=== PATIENT | female | born 1995 | race Caucasian/White ===

== ENCOUNTER 2024-02-29 11:45 | Observation (INO) | payer MEDICAID, SELFPAY ==
[2024-02-29] VITALS (8 sets, daily range): BP systolic 115–133; BP diastolic 66–89; PULSE 74–100; BMI 31.8
[2024-02-29] MEDS: ACETAMINOPHEN 325 MG TABLET 650 MG PO (12:17)
[2024-02-29 12:53] LABS: Collection Type, Urine Clean Catch
[2024-02-29 13:07] LABS: Basophils # (Auto) 0.1 Thou/mm3 (0.0-0.2); Basophils % (Auto) 1 % (0-2.5); Eosinophils % (Auto) 1 % (0-10); Hematocrit 25.7 % (36.0-46.0); Immature Granulocytes % (Auto) 2 % (0-0); Immature Granulocytes Auto 0.13 Thou/mm3 (0.00-0.00); Lymphocytes # (Auto) 1.2 Thou/mm3 (1.0-4.8); Lymphocytes % (Auto) 14 % (10-50); Mean Corpuscular HGB Conc 31.5 g/dl (31.0-37.0); Mean Corpuscular Hemoglobin 22.1 pg (25.0-35.0); Mean Corpuscular Volume 70 fL (80-100); Monocytes # (Auto) 0.5 Thou/mm3 (0.0-0.8); Monocytes % (Auto) 5 % (0-12); Neutrophils # (Auto) 6.9 Thou/mm3 (1.8-7.7); Neutrophils % (Auto) 78 % (37-80); Nucleated Red Blood Cell % 0 /100 WBC (0); Platelet Count 235 Thou/mm3 (140-440); RDW Standard Deviation 40.2 fL (36.4-46.3); Red Blood Count 3.66 Miln/mm3 (4.00-5.20); White Blood Count 8.7 Thou/mm3 (3.6-11.0)
[2024-02-29 13:16] LABS: Alanine Aminotransferase 11 U/L (10-49); Albumin/Globulin Ratio 1.7 (1.2-2.2); Alkaline Phosphatase 239 U/L (46-116); Anion Gap 8 (7-16); Aspartate Amino Transferase 17 U/L (0-34); BUN/Creatinine Ratio 12 Ratio (12-20); Bilirubin,Total 0.3 mg/dL (0.3-1.2); Blood Urea Nitrogen 6 mg/dL (9-23); Calcium 8.7 mg/dL (8.3-10.6); Calcium (Corrected) 8.7 mg/dL (8.5-10.1); Carbon Dioxide 21.7 mMol/L (20.0-31.0); Chloride 105 mMol/L (98-107); Creatinine (Component) 0.5 mg/dL (0.6-1.3); Estimated Creatinine Clearance 191.7 mL/min (>60); Globulin 2.4 gm/dL (2.3-3.5); Glucose 78 mg/dL (74-106); LDH (Lactate Dehydrogenase) 185 U/L (120-246); Osmolality,Calculated 266 (275-295); Potassium 3.7 mMol/L (3.4-5.1); Sodium 135 mMol/L (136-145); Total Protein 6.4 gm/dL (5.7-8.2); Uric Acid 4.2 mg/dL (3.1-7.8); eGFR > 60 See Note
[2024-02-29 13:17] LABS: Bilirubin,Urine Negative (Negative); Blood,Urine Negative (Negative); Clarity,Urine Turbid (Clear/Hazy); Color,Urine Yellow (Lt Yel-Yel); Glucose, Urine Negative (Negative); Ketones,Urine Negative (Negative); Leukocyte Esterase,Urine Positive (Negative); Nitrite,Urine Negative (Negative); PH,Urine 6.5 (5.0-7.0); Protein,Urine Trace (Neg - Trace); RBC,Urine 1 /hpf (0-3); Specific Gravity,Urine 1.022 (1.001-1.035); Squamous Epithelial Cell,Urine 15 /hpf (0-5); Urobilinogen,Urine Negative mg/dL (0.0-1.0); WBC,Urine 4 /hpf (0-5)
[2024-02-29 13:18] LABS: Hemoglobin 8.1 g/dL (12.0-16.0)
[2024-02-29 13:21] LABS: Fibrinogen 585 mg/dL (175-375); INR 0.9 (0.9-1.3); Partial Thromboplastin Time 25.4 Seconds (22.0-36.0); Prothrombin Time 10.1 Seconds (9.0-12.2)
== END 2024-02-29 13:55 | disposition home or self-care (01) ==
PROVIDERS: Admitting Provider Obstetrics & Gynecology; Visit Provider Obstetrics & Gynecology
DX: O26.893 Other specified pregnancy related conditions, third trimester (principal); H53.8 Other visual disturbances; R51.9 Headache, unspecified; Z3A.36 36 weeks gestation of pregnancy
CPT/HCPCS: 36415; 59025; 59899; 80053; 81001; 83615; 84550; 85025; 85384; 85610; 85730; A9270

== ENCOUNTER 2024-03-08 10:01 | Outpatient (CLI) | payer MEDICAID, SELFPAY ==
[2024-03-08] VITALS (17 sets, daily range): BP systolic 112–132; BP diastolic 70–73; PULSE 84–116; O2SAT 98–99; BMI 32.0
[2024-03-08 10:39] LABS: Collection Type, Urine Clean Catch
[2024-03-08 10:42] LABS: Basophils % (Auto) 0 % (0-2.5); Eosinophils % (Auto) 0 % (0-10); Hematocrit 27.3 % (36.0-46.0); Immature Granulocytes % (Auto) 1 % (0-0); Immature Granulocytes Auto 0.11 Thou/mm3 (0.00-0.00); Lymphocytes # (Auto) 1.3 Thou/mm3 (1.0-4.8); Lymphocytes % (Auto) 14 % (10-50); Mean Corpuscular HGB Conc 31.1 g/dl (31.0-37.0); Mean Corpuscular Hemoglobin 21.7 pg (25.0-35.0); Mean Corpuscular Volume 70 fL (80-100); Monocytes # (Auto) 0.3 Thou/mm3 (0.0-0.8); Monocytes % (Auto) 3 % (0-12); Neutrophils # (Auto) 7.4 Thou/mm3 (1.8-7.7); Neutrophils % (Auto) 81 % (37-80); Nucleated Red Blood Cell % 0 /100 WBC (0); Platelet Count 210 Thou/mm3 (140-440); RDW Standard Deviation 40.9 fL (36.4-46.3); Red Blood Count 3.92 Miln/mm3 (4.00-5.20); White Blood Count 9.1 Thou/mm3 (3.6-11.0)
[2024-03-08 10:57] LABS: Bacteria,Urine Rare; Bilirubin,Urine Negative (Negative); Blood,Urine Negative (Negative); Color,Urine Lt-Yellow (Lt Yel-Yel); Glucose, Urine Negative (Negative); Ketones,Urine Negative (Negative); Leukocyte Esterase,Urine Positive (Negative); Nitrite,Urine Negative (Negative); Protein,Urine Negative (Neg - Trace); RBC,Urine 2 /hpf (0-3); Specific Gravity,Urine 1.022 (1.001-1.035); Squamous Epithelial Cell,Urine 12 /hpf (0-5); Urobilinogen,Urine Negative mg/dL (0.0-1.0); WBC,Urine 3 /hpf (0-5)
[2024-03-08 11:03] LABS: Fibrinogen 585 mg/dL (175-375); INR 0.9 (0.9-1.3); Partial Thromboplastin Time 25.1 Seconds (22.0-36.0); Prothrombin Time 10.3 Seconds (9.0-12.2)
[2024-03-08 11:05] LABS: Clarity,Urine Hazy (Clear/Hazy); Sperm,Urine Present
[2024-03-08 11:06] LABS: Hemoglobin 8.5 g/dL (12.0-16.0)
[2024-03-08 11:10] LABS: Alanine Aminotransferase 10 U/L (10-49); Albumin, Serum 4.1 gm/dL (3.5-5.0); Albumin/Globulin Ratio 1.5 (1.2-2.2); Alkaline Phosphatase 253 U/L (46-116); Anion Gap 11 (7-16); Aspartate Amino Transferase 13 U/L (0-34); BUN/Creatinine Ratio 17 Ratio (12-20); Bilirubin,Total 0.4 mg/dL (0.3-1.2); Blood Urea Nitrogen 10 mg/dL (9-23); Calcium 8.8 mg/dL (8.3-10.6); Calcium (Corrected) 8.8 mg/dL (8.5-10.1); Carbon Dioxide 20.1 mMol/L (20.0-31.0); Chloride 105 mMol/L (98-107); Creatinine (Component) 0.6 mg/dL (0.6-1.3); Estimated Creatinine Clearance 160.3 mL/min (>60); Globulin 2.7 gm/dL (2.3-3.5); Glucose 111 mg/dL (74-106); LDH (Lactate Dehydrogenase) 196 U/L (120-246); Osmolality,Calculated 271 (275-295); Potassium 3.4 mMol/L (3.4-5.1); Sodium 136 mMol/L (136-145); Total Protein 6.8 gm/dL (5.7-8.2); Uric Acid 4.1 mg/dL (3.1-7.8); eGFR > 60 See Note
== END 2024-03-08 11:23 | disposition home or self-care (01) ==
LOC: S4S1 10:07 → S4SX 10:09
PROVIDERS: PCP Advanced Practice Midwife; Referring Provider Advanced Practice Midwife; Visit Provider Advanced Practice Midwife
DX: Z34.83 Encounter for supervision of other normal pregnancy, third trimester (principal); Z36.89 Encounter for other specified antenatal screening; Z3A.37 37 weeks gestation of pregnancy
CPT/HCPCS: 36415; 59025; 80053; 81001; 83615; 84550; 85025; 85384; 85610; 85730

== ENCOUNTER 2024-03-26 10:10 | Inpatient (IN) | payer MEDICAID, SELFPAY ==
[2024-03-26] VITALS (54 sets, daily range): BP systolic 131–176; BP diastolic 80–101; PULSE 75–125; RESP 16–100; TEMP 36.5–37.3; O2SAT 91–100; BMI 32.1
[2024-03-26 11:39] LABS: Basophils # (Auto) 0.1 Thou/mm3 (0.0-0.2); Basophils % (Auto) 0 % (0-2.5); Eosinophils # (Auto) 0.1 Thou/mm3 (0.0-0.5); Eosinophils % (Auto) 0 % (0-10); Hematocrit 30.6 % (36.0-46.0); Hemoglobin 9.5 g/dL (12.0-16.0); Immature Granulocytes % (Auto) 1 % (0-0); Immature Granulocytes Auto 0.11 Thou/mm3 (0.00-0.00); Lymphocytes # (Auto) 1.6 Thou/mm3 (1.0-4.8); Lymphocytes % (Auto) 13 % (10-50); Mean Corpuscular Hemoglobin 21.3 pg (25.0-35.0); Mean Corpuscular Volume 69 fL (80-100); Monocytes # (Auto) 0.5 Thou/mm3 (0.0-0.8); Monocytes % (Auto) 4 % (0-12); Neutrophils # (Auto) 9.7 Thou/mm3 (1.8-7.7); Neutrophils % (Auto) 81 % (37-80); Nucleated Red Blood Cell % 0 /100 WBC (0); Platelet Count 303 Thou/mm3 (140-440); RDW Standard Deviation 43.5 fL (36.4-46.3); Red Blood Count 4.47 Miln/mm3 (4.00-5.20)
[2024-03-26] MEDS: MISOPROSTOL 200 mCg TABLET 800 MCG PR ×2 (11:39→14:36)
[2024-03-26] MEDS: OXYTOCIN INJ 10 UNIT/ML VIAL IM (11:41)
[2024-03-26] MEDS: OXYTOCIN in NS 20 units 20 UNIT/1,000 ML BAG 125 UNIT IV ×2 (11:42→17:14)
[2024-03-26] MEDS: BENZO/LANO/ALOE (Dermoplast) 60 GM CAN 1 SPRAY TOP (11:55)
--- NOTE | 2024-03-26 12:04 | ESHP_ITS ---
Documentation for date of: 03/26/24 OB Labor/Induct. HPI History of Present Illness Chief complaint: labor : 6 Para: 3 Term pregnancies: 3 pregnancies: 0 Living children: 3 History of Abortions: Spontaneous and Elective: 0 History of Vaginal deliveries: 3 History of sections: No History of : No Date of last menstrual period: 06/21/23 EVE: 03/26/24 Gestational Age (weeks): 40 Gestational Age (days): 0 Gestational age based on last menstrual period: 39 History of present illness: 28-year-old 6 para 3 admit to labor and delivery complaining of contractions since 613 in the morning. Patient is been followed at [facility] care. First visit 14 weeks. She had a 7-week ultrasound in July they changed her due date to March 26, 2024. Denies social habits. Denies surgery. Denies chronic illness. Last period by ultrasound would be June 21, 2023. Patient is O+, antibody screen negative, RPR nonreactive, rubella nonimmune, hepatitis B negative, HIV negative, hep C negative, GC and Chlamydia were negative. She had a normal 1 hour. Her NIPT and screens were negative. She had normal anatomy scan. And GBS was negative History of Present Dating criteria: LMP confirmed by 1st trimester US Adequate Care: Yes Ultrasounds: normal 1st trimester US and normal mid trimester US Obstetrical complications: none Medical complications: none Review of Systems Review of Systems Systems Reviewed: All systems reviewed, normal except as documented Past Medical History Surgical History SURGICAL: Negative Section Meds Home Medications and Allergies Home Medications ?Medication ?Instructions ?Recorded ?Confirmed ?Type ferrous sulfate 325 mg (65 mg 325 mg PO QDAY 04/04/22 03/08/24 History iron) tablet (Iron (ferrous sulfate)) [id number] 1 mg 1 tab PO QDAY 04/04/22 03/08/24 History tablet Allergies Allergy/AdvReac Type Severity Reaction Status Date / Time No Known Allergies Allergy Verified 03/08/24 10:20 OB Exam Physical Exam Vital signs: Temp Pulse Resp BP Pulse Ox 97.7 F 86 16 149/90 H 97 03/26/24 10:23 03/26/24 11:51 03/26/24 10:23 03/26/24 11:51 03/26/24 11:59 Narrative: Vital signs are stable afebrile. Normal heart rate and rhythm. Lungs clear no wheezes. Gravid abdomen. Gynecoid pelvis. Estimated weight 8 pounds. Vaginal exam on admission was 90%, 7 cm and -1 station. Vertex. Bag water intact. heart rate category 1 with accelerations and moderate variability and regular contractions Detailed Labor and Delivery Exam Dilation (cm): 7 Effacement (%): 90 Cervix position: mid station: -1 Consistency: soft Presentation: Vertex Cervical ripeness score: 8 Membranes: intact Baseline heart rate: 145 monitor accelerations: 15x15 monitor decelerations: None correction variability: Moderate (11-25) Contraction frequency (min): 3-4 Contraction duration (sec): 30 Tachysystole: No Contraction intensity: Moderate OB Results Labs 03/26/24 11:28 03/26/24 11:28 Labs: Short CBC 03/26/24 Range/Units 11:28 WBC 12.0 H (3.6-11.0) Thou/mm3 Hgb 9.5 L (12.0-16.0) g/dL Hct 30.6 L (36.0-46.0) % Plt Count 303 D (140-440) Thou/mm3 Impressions Impression: labor OB Assessment & Plan Additional Plan Induction method: none Plan: anticipate NVD and consult MD perez
--- NOTE | 2024-03-26 12:10 | OBDSUM_ITS ---
Data (Dia) Data Hx Section: No : 6 Para: 3 Term: 3 : 0 : 2 Delivery Data (Dia) Labor Data Stimulated/Augmented: No Induction: No ROM Date: 03/26/24 ROM Time: 11:35 Rupture Type: SROM Amniotic Fluid: Thin Meconium Delivery Data EDC: 03/26/24 EDC calculated by:: LMP/early US confirmation Labor Onset Stage 1 Date: 03/26/24 Labor Onset Stage 1 Time: 11:39 Labor Onset Stage 2 Date: 03/26/24 Labor Onset Stage 2 Time: 11:39 Delivery Date: 03/26/24 Delivery Time: 11:39 Gestational age (weeks): 40 Gestational age (days): 0 Placenta Delivery Date: 03/26/24 Placenta Delivery Time: 11:43 Delivered by: Radha Abdullahi Delivery nurse: Erinn Irene Other staff at delivery: Nurse Other staff at delivery: Nursery Nurse Other staff at delivery: Other staff at delivery: Marleni Kilpatrick Other staff at delivery: Mary Wayne Other staff at delivery: GRETCHEN Delivery Method Delivery: Vaginal Delivery Type: Spontaneous Presentation: Vertex Position: OA Anesthesia Type Primary Anesthesia: None Delivery Room Medications Post Delivery Medications: Tocolytics and Cytotec Placenta Placenta Delivery: Spontaneous (placenta inspected, intact, membranes intact) Placenta Cultures Obtained: No Placenta Sent for Examination: Yes Episiotomy Episiotomy: None Lacerations #1: Labial: separation of tissue, not bleeding, no repair per patient request and small EBL Estimated blood loss (ml): 350 Umbilical Cord Umbilical Vessels: 3 Nuchal Cord: x1 Body Cord: None [place] Data (Dia) Data Gender: Female Infant Weight Grams: 3590 1 Minute Total: 9 5 Minute Total: 9
[2024-03-26 12:22] LABS: Syphilis Nonreactive (Nonreactive)
[2024-03-26 12:27] LABS: Alanine Aminotransferase 10 U/L (10-49); Albumin, Serum 4.3 gm/dL (3.5-5.0); Albumin/Globulin Ratio 1.6 (1.2-2.2); Alkaline Phosphatase 300 U/L (46-116); Anion Gap 12 (7-16); Aspartate Amino Transferase 20 U/L (0-34); BUN/Creatinine Ratio 15 Ratio (12-20); Bilirubin,Total 0.3 mg/dL (0.3-1.2); Blood Urea Nitrogen 9 mg/dL (9-23); Calcium 9.2 mg/dL (8.3-10.6); Calcium (Corrected) 9.2 mg/dL (8.5-10.1); Carbon Dioxide 18.6 mMol/L (20.0-31.0); Chloride 105 mMol/L (98-107); Creatinine (Component) 0.6 mg/dL (0.6-1.3); Estimated Creatinine Clearance 201.1 mL/min (>60); Globulin 2.7 gm/dL (2.3-3.5); Glucose 79 mg/dL (74-106); Osmolality,Calculated 269 (275-295); Potassium 3.9 mMol/L (3.4-5.1); Sodium 136 mMol/L (136-145); eGFR > 60 See Note
[2024-03-26] MEDS: TRANEXAMIC ACID 1,000 MG IVPB 1,000 MG/100 ML BAG 200 MG IV ×2 (12:30→14:30)
[2024-03-26 12:41] LABS: LDH (Lactate Dehydrogenase) 242 U/L (120-246); Uric Acid 4.2 mg/dL (3.1-7.8)
--- NOTE | 2024-03-26 12:48 | PC.NURSE ---
03/26/2024 BLOOD PRESSURES REVIEWED WITH SONIA VALENTINO, [facility] SENT. SONIA CONSULTED WITH , PATIENT DENIES SYMPTOMS PER M.D. NOTIFY IF SBP'S >160 AND DBP > 110.
[2024-03-26 13:14] LABS: INR 0.9 (0.9-1.3); Partial Thromboplastin Time 26.9 Seconds (22.0-36.0); Prothrombin Time 9.9 Seconds (9.0-12.2)
[2024-03-26 13:25] LABS: Fibrinogen 633 mg/dL (175-375)
[2024-03-26] MEDS: IBUPROFEN TAB 400 MG TABLET 800 MG PO (13:57)
--- NOTE | 2024-03-26 14:18 | PC.NURSE ---
03/26/2024 @ 1418 UPDATE GIVEN TO SONIA VALENTINO, PATIENT AFTER VAGINAL DELIVERY DONE. PATIENT FUNDUS, FIRM MIDLINE, ON ASSESSMENT PATIENT DID HAVE CLOTS AND TRICKLE WITH FUNDAL MASSAGES. PATIENT VOIDED AT THIS TIME. ORDERS RECEIVED FROM MARY TO GIVE PATIENT CYTOTEC, 2 BAG OF TXA AND TO CONTINUE WITH SECOND BAG OF POST DELIVERY PITOCIN AFTER FIRST BAG IS COMPLETE.
[2024-03-26 14:52] LABS: Collection Type, Urine Clean Catch
[2024-03-26 14:58] LABS: Bilirubin,Urine Negative (Negative); Blood,Urine Negative (Negative); Clarity,Urine Clear (Clear/Hazy); Color,Urine Lt-Yellow (Lt Yel-Yel); Glucose, Urine Negative (Negative); Ketones,Urine Negative (Negative); Leukocyte Esterase,Urine Negative (Negative); Nitrite,Urine Negative (Negative); Protein,Urine Negative (Neg - Trace); RBC,Urine 1 /hpf (0-3); Specific Gravity,Urine 1.022 (1.001-1.035); Squamous Epithelial Cell,Urine 1 /hpf (0-5); Urobilinogen,Urine Negative mg/dL (0.0-1.0); WBC,Urine < 1 /hpf (0-5)
[2024-03-26 15:10] LABS: Amphetamine/Metham Scrn,Ur OB Negative (Negative); Benzoylecgonine Screen, Ur OB Negative (Negative); Opiate Screen,Urine OB Negative (Negative); THC Screen,Urine OB Negative (Negative)
--- NOTE | 2024-03-26 16:09 | PC.NURSE ---
03/26/2024 @ [address] VARGAS NOTIFIED [facility] NEGATIVE, PATIENT DENIES PRE-ECLAMPSIA SYMPTOMS OR PAIN AT THIS TIME. BLOOD PRESSURES READINGS FROM 1600 VITAL SIGNS READ BACK TO PROVIDER. ORDERS RECEIVED FOR PROCARDIA 10 MG PO X1. REASSESS PATIENT'S BLOOD PRESSURE AFTER 30 MINUTES AND NOTIFY M.D. OF VITAL SIGNS.
[2024-03-26] MEDS: NIFEdipine 10 MG CAPSULE PO (16:20)
--- NOTE | 2024-03-26 16:58 | PC.NURSE ---
03/26/24 @ [address] VARGAS NOTIFIED OF PATIENT BLOOD PRESSURE, 30 MINUTES AFTER PROCARDIA 10 MG PO X1, 151/88 [facility]. ORDERS RECEIVED FROM DR. VARGAS TO GIVE PROCARDIA XL 60 MG PO X1. PER M.D. TAKE BLOOD PRESSURE AT NEXT SCHEDULED ROUTINE VS AND NOTIFY M.D. ORDERS RECEIVED ALSO FROM M.D. TO NOTIFY M.D. IF SBP >160 AND DBP > 100.
[2024-03-26] MEDS: NIFEdipine XL 30 MG TABCR 60 MG PO (17:08)
[2024-03-26 18:18] LABS: Basophils % (Auto) 0 % (0-2.5); Eosinophils % (Auto) 0 % (0-10); Hematocrit 26.9 % (36.0-46.0); Immature Granulocytes % (Auto) 1 % (0-0); Immature Granulocytes Auto 0.12 Thou/mm3 (0.00-0.00); Lymphocytes # (Auto) 1.5 Thou/mm3 (1.0-4.8); Lymphocytes % (Auto) 11 % (10-50); Mean Corpuscular Hemoglobin 21.6 pg (25.0-35.0); Mean Corpuscular Volume 68 fL (80-100); Monocytes # (Auto) 0.6 Thou/mm3 (0.0-0.8); Monocytes % (Auto) 4 % (0-12); Neutrophils # (Auto) 11.9 Thou/mm3 (1.8-7.7); Neutrophils % (Auto) 84 % (37-80); Nucleated Red Blood Cell % 0 /100 WBC (0); Platelet Count 249 Thou/mm3 (140-440); RDW Standard Deviation 42.8 fL (36.4-46.3); Red Blood Count 3.98 Miln/mm3 (4.00-5.20); White Blood Count 14.1 Thou/mm3 (3.6-11.0)
[2024-03-26 18:19] LABS: Hemoglobin 8.6 g/dL (12.0-16.0)
--- NOTE | 2024-03-26 19:00 | PC.NURSE ---
03/26/2024 @ 1900 UPDATE GIVEN TO SONIA VALENTINO. VITAL SIGNS, MEDICATIONS GIVEN TO PATIENT AND CBC RESULTS REVIEWED. PER CNM WILL CONSULT DR. VARGAS ON POC AND WILL CALL BACK UNIT. CNM NOTIFIED PATIENT DENIES PAIN AND + VOID AFTER DELIVERY. ORDERS RECEIVED FROM MARY FOR REPEAT CBC AT 0500.
[2024-03-26] MEDS: FERRIC SOD GLUC INJ 125 MG in SODIUM CHLORIDE 0.9% 100 ML 110 MG IV (21:27)
[2024-03-26] MEDS: DOCUSATE SOD 100 MG CAPSULE PO (22:29)
[2024-03-27 01:50] LABS: Path Review Blood Smear Sent to Pathologist
[2024-03-27 04:01] VITALS: BP 111/69; PULSE 85; RESP 16; TEMP 36.9; O2SAT 96
[2024-03-27 06:45] LABS: Basophils # (Auto) 0.1 Thou/mm3 (0.0-0.2); Basophils % (Auto) 1 % (0-2.5); Eosinophils # (Auto) 0.2 Thou/mm3 (0.0-0.5); Eosinophils % (Auto) 2 % (0-10); Hematocrit 27.2 % (36.0-46.0); Hemoglobin 8.3 g/dL (12.0-16.0); Immature Granulocytes % (Auto) 1 % (0-0); Immature Granulocytes Auto 0.13 Thou/mm3 (0.00-0.00); Lymphocytes # (Auto) 2.1 Thou/mm3 (1.0-4.8); Lymphocytes % (Auto) 20 % (10-50); Mean Corpuscular HGB Conc 30.5 g/dl (31.0-37.0); Mean Corpuscular Hemoglobin 21.1 pg (25.0-35.0); Mean Corpuscular Volume 69 fL (80-100); Monocytes # (Auto) 0.5 Thou/mm3 (0.0-0.8); Monocytes % (Auto) 4 % (0-12); Neutrophils # (Auto) 7.5 Thou/mm3 (1.8-7.7); Neutrophils % (Auto) 72 % (37-80); Nucleated Red Blood Cell % 0 /100 WBC (0); Platelet Count 245 Thou/mm3 (140-440); RDW Standard Deviation 43.8 fL (36.4-46.3); Red Blood Count 3.93 Miln/mm3 (4.00-5.20); White Blood Count 10.4 Thou/mm3 (3.6-11.0)
--- NOTE | 2024-03-27 07:45 | PD.LDPPPRG ---
Subjective Subjective Interval history: No complaints of pain. No dizziness. Bonding and breast-feeding Exam Vital Signs Temp Pulse Resp BP Pulse Ox O2 Del Method 98.4 F 85 16 111/69 96 Room Air 03/27/24 04:01 03/27/24 04:01 03/27/24 04:01 03/27/24 04:01 03/27/24 04:01 03/27/24 04:01 Narrative Exam Vital signs stable afebrile. Breasts are soft. Fundus firm below the umbilicus. Perineum intact no swelling. Small lochia. Uterus well involuted. Negative Homans' sign. 2+ DTRs. Objective Labs 03/27/24 06:00 03/26/24 11:28 Labs: Laboratory Results - last 24 hr 03/26/24 03/26/24 03/26/24 10:55 11:28 17:58 WBC 12.0 H 14.1 H RBC 4.47 3.98 L Hgb 9.5 L 8.6 L Hct 30.6 L 26.9 L MCV 69 L 68 L MCH 21.3 L 21.6 L MCHC 31.0 32.0 RDW Std Deviation 43.5 42.8 Plt Count 303 D 249 D Neut % (Auto) 81 H 84 H Lymph % (Auto) 13 11 [place] % (Auto) 4 4 Eos % (Auto) 0 0 Baso % (Auto) 0 0 Neut # (Auto) 9.7 H 11.9 H Lymph # (Auto) 1.6 1.5 [place] # (Auto) 0.5 0.6 Eos # (Auto) 0.1 0.0 Baso # (Auto) 0.1 0.0 Immature Gran # (Auto) 0.11 H 0.12 H Absolute Nucleated RBC 0.00 0.00 Immature Gran % 1 H 1 H Nucleated RBC % 0 0 Smear Path Review Sent to Pathologist PT 9.9 INR 0.9 APTT 26.9 Fibrinogen 633 H* Sodium 136 Potassium 3.9 Chloride 105 Carbon Dioxide 18.6 L Anion Gap 12 BUN 9 Creatinine 0.6 Estim Creat Clear Calc 201.1 eGFR > 60 BUN/Creatinine Ratio 15 Glucose 79 Calculated Osmolality 269 L Uric Acid 4.2 Calcium 9.2 Corrected Calcium 9.2 Total Bilirubin 0.3 AST 20 ALT 10 Alkaline Phosphatase 300 H Lactate Dehydrogenase 242 Total Protein 7.0 Albumin 4.3 Globulin 2.7 Albumin/Globulin Ratio 1.6 Ur Collection Type Clean Catch Urine Color Lt-Yellow Urine Clarity Clear Urine pH 6.0 Ur Specific [place] 1.022 Urine Protein Negative Urine Glucose (UA) Negative Urine Ketones Negative Urine Blood Negative Urine Nitrite Negative Urine Bilirubin Negative Urine Urobilinogen (Auto) Negative Ur Leukocyte Esterase Negative Urine RBC 1 Urine WBC < 1 Ur Squamous Epith Cells 1 Urine Bacteria None Urine Opiates Screen Negative U Amphetamin/Meth Scrn Negative U Cocaine Metab Screen Negative U Marijuana (THC) Screen Negative Syphilis Serology Nonreactive Blood Type O Positive Antibody Screen NEGATIVE Blood Bank Wristband ID Yes 03/27/24 06:00 WBC 10.4 RBC 3.93 L Hgb 8.3 L Hct 27.2 L MCV 69 L MCH 21.1 L MCHC 30.5 L RDW Std Deviation 43.8 Plt Count 245 Neut % (Auto) 72 Lymph % (Auto) 20 [place] % (Auto) 4 Eos % (Auto) 2 Baso % (Auto) 1 Neut # (Auto) 7.5 Lymph # (Auto) 2.1 [place] # (Auto) 0.5 Eos # (Auto) 0.2 Baso # (Auto) 0.1 Immature Gran # (Auto) 0.13 H Absolute Nucleated RBC 0.00 Immature Gran % 1 H Nucleated RBC % 0 Smear Path Review PT INR APTT Fibrinogen Sodium Potassium Chloride Carbon Dioxide Anion Gap BUN Creatinine Estim Creat Clear Calc eGFR BUN/Creatinine Ratio Glucose Calculated Osmolality Uric Acid Calcium Corrected Calcium Total Bilirubin AST ALT Alkaline Phosphatase Lactate Dehydrogenase Total Protein Albumin Globulin Albumin/Globulin Ratio Ur Collection Type Urine Color Urine Clarity Urine pH Ur Specific [place] Urine Protein Urine Glucose (UA) Urine Ketones Urine Blood Urine Nitrite Urine Bilirubin Urine Urobilinogen (Auto) Ur Leukocyte Esterase Urine RBC Urine WBC Ur Squamous Epith Cells Urine Bacteria Urine Opiates Screen U Amphetamin/Meth Scrn U Cocaine Metab Screen U Marijuana (THC) Screen Syphilis Serology Blood Type Antibody Screen Blood Bank Wristband ID Assessment & Plan Assessment Comment Assessment comment: 24 hr pp, anemia Plan Comment Plan Comment: Discharge home with baby after IV Ferrlecit. Continue iron twice a day at home. Continue prenatals. Tylenol or ibuprofen for pain. Discussed danger signs and symptoms. Discussed ER precautions and parameters. Discussed signs symptoms of infection. Increase fluids and rest. Return in 3 weeks visit Time Spent With Patient Time: Total time spent is greater than 50% in coordination of care (as documented) at patient's floor/unit and/or counseling patient:
--- NOTE | 2024-03-27 07:47 | PD.LDDS ---
DS: Providers Provider Date of admission: 03/26/24 11:20 Primary care physician: Physician No Primary/Family Admitting Provider: Radha Abdullahi CNM Attending Provider on Admission: Radha Abdullahi CNM Consults: 03/26/24 13:43 Referral Routine Comment: Attending Provider on DC: Radha Abdullahi CNM Discharging Provider: Radha Abdullahi CNM DS: Diagnosis Problem List Completed Was Problem List Reviewed/Reconciled?: Yes Summary/Hosp Course Brief History: 28-year-old 6 para 3 admit to labor and delivery complaining of contractions since 613 in the morning. Patient is been followed at [facility] care. First visit 14 weeks. She had a 7-week ultrasound in July they changed her due date to March 26, 2024. Denies social habits. Denies surgery. Denies chronic illness. Last period by ultrasound would be June 21, 2023. Patient is O+, antibody screen negative, RPR nonreactive, rubella nonimmune, hepatitis B negative, HIV negative, hep C negative, GC and Chlamydia were negative. She had a normal 1 hour. Her NIPT and screens were negative. She had normal anatomy scan. And GBS was negative Peripartum Data Delivery Method: Normal Vaginal Delivery Episiotomy Description: None Laceration Description: yes (vaginal/labial, no repair) Time Spent with Patient Time attestation: Total time spent providing and/or coordinating discharge services: Exam Vital Signs Temp Pulse Resp BP Pulse Ox O2 Del Method 98.4 F 85 16 111/69 96 Room Air 03/27/24 04:01 03/27/24 04:01 03/27/24 04:01 03/27/24 04:01 03/27/24 04:01 03/27/24 04:01 Discharge Plan Plan Patient Disposition: HOME (Self Care) Prescriptions/Referrals Prescriptions/Med Rec: No Action 1 mg Tablet 1 tab PO QDAY ferrous sulfate [Iron (ferrous sulfate)] 325 mg (65 mg iron) Tablet 325 mg PO QDAY Referrals: No Primary/Family,Physician [Primary Care Provider] - Patient/Caregiver Discharge Instructions Print Language: Faroese Activity Restrictions/Additional Instructions: Discharge home with baby. After IV iron.. Continue vitamins and iron twice a day at home increase iron foods. Increase fluids. Discussed danger signs and symptoms. Discussed ER precautions and parameters. Discussed signs and symptoms of infection. Discussed PIH symptoms and precautions return in 3 weeks visit Stand Alone Forms: Coni Award Info., Patient Portal Info Letter Discharge Order Discharge Orders: Discharge (Routine); Ordered 03/27/24 Ordered By: Radha Abdullahi Planned Discharge Date 03/27/24
[2024-03-27 08:00] VITALS: BP 116/76; PULSE 82; RESP 17; TEMP 36.7; O2SAT 98
[2024-03-27] MEDS: FERRIC SOD GLUC INJ 125 MG in SODIUM CHLORIDE 0.9% 100 ML 110 MG IV (08:54)
[2024-03-27] MEDS: DOCUSATE SOD 100 MG CAPSULE PO (09:20)
--- NOTE | 2024-03-27 10:32 | PC.NURSE ---
Cleared by rn social work
--- NOTE | 2024-03-27 10:51 | PC.CC ---
Patient is a 28 year-old female who presents to the hospital to deliver her new born baby. Sherry CONNOR made [id number] contact with patient. ASW introduced self, role, and reason for visit. Patient appeared alert and oriented to self, location, and situation. ASW discussed limits of confidentiality. Patient was pleasant and engaged in initial assessment. ASW received referral as patient was late to care at 14 weeks. Patient reports she was late to care because the doctors office where she was receiving care was backed up and had no open appointments; however, received consistent care upon her establishing care. Patient has 3 other children: 9 year-old Jose Ye[place]rell[place]oosevelt, 4 year-old Reid Allen, 1 year-old Sabino Allen. Patient reports the Father of Baby, Abram Allen is involved and they live together with the other children. Patient denied past CWS involvement or domestic violence. Patient stated she has all the supplies she needs for her and plans to exclusively breast feed. Patient receives SNAP. SW provided psychoeducation regarding baby blues and Post- Depression, as well as counseling groups at [facility] SW provided community resources: Warm Line and Crisis Line. ASW provided update to [employer] Croft.
[2024-03-27 12:19] VITALS: BP 125/80; PULSE 65; RESP 17; TEMP 36.7; O2SAT 98
== END 2024-03-27 14:10 | disposition home or self-care (01) | DRG 560 ==
LOC: S4SX 12:33 → S4NX 13:28
PROVIDERS: Admitting Provider Advanced Practice Midwife; Visit Provider Advanced Practice Midwife
DX: O69.81X0 Labor and delivery complicated by cord around neck, without compression, not applicable or unspecified (principal); O77.0 Labor and delivery complicated by meconium in amniotic fluid; Z37.0 Single live birth; Z3A.40 40 weeks gestation of pregnancy; O71.89 Other specified obstetric trauma; O90.81 Anemia of the puerperium
CPT/HCPCS: 36415; 59409; 80053; 80307; 81001; 83615; 84550; 85025; 85384; 85610; 85730; 86780; 86850; 86900; 86901; 94762; J2590; J2916; J3490; J7050; S0191; A9270